=== PATIENT | female | born 1970 | race Caucasian/White ===

== ENCOUNTER 2019-05-26 11:14 | Day surgery (SDC) | payer OTHER ==
[~2019-05-26 11:14] MED LIST: ACETAMINOPHEN 1,000 MG/100 ML BTL IVPB ONE; CEFAZOLIN 2 Gram 2 GM/50 ML BAG IVPB ONE
[2019-05-26] MEDS ORDERED: SEVOFLURANE 250 ML INH ONE (11:15)
[2019-05-26] MEDS ORDERED: LIDOCAINE 2% MDV (20MG/ML) 20ML VIAL IV ONE (11:15)
[2019-05-26] MEDS ORDERED: ONDANSETRON HCL IV 4 MG/2 ML VIAL IVP ONE (11:15)
[2019-05-26] MEDS ORDERED: FENTANYL PF 100MCG/2ML VIAL IV ONE (11:15)
[2019-05-26] MEDS ORDERED: PROPOFOL 10 MG/ML VIAL IV ONE (11:15)
[2019-05-26] MEDS ORDERED: KETOROLAC 30 MG/ML VIAL IVP ONE (11:15)
[2019-05-26] MEDS ORDERED: MIDAZOLAM HCL 2MG/2ML VIAL IV ONE (11:15)
[2019-05-26] MEDS ORDERED: RINGERS SOLUTION,LACTATED 1,000 ML IV ONE (11:45)
[2019-05-26] MEDS ORDERED: METHYLPREDNISOLONE 40MG/VIAL IU ONE (13:26)
[2019-05-26] MEDS ORDERED: BUPIVACAINE 0.5% W/EPI MPF 30 ML VIAL SQ ONE (13:26)
[2019-05-26] MEDS ORDERED: MORPHINE SULFATE (PACU ONLY) 4 MG/ML VIAL IU ONE (13:26)
--- NOTE | 2019-05-27 09:40 | Operative Note ---
DATE OF SURGERY: 05/26/2019 PREOPERATIVE DIAGNOSIS: Internal derangement of the left knee. POSTOPERATIVE DIAGNOSES: 1. 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 2. Absent medial meniscus. 3. Large spur in the notch with impingement. OPERATION: 1. Left knee arthroscopy with intraarticular debridement and chondroplasty of patellofemoral compartment. 2. Left knee arthroscopy with resection of large spur in the notch. STAFF SURGEON: Sami Irwin MD ANESTHESIA: General. PREPARATION: Chloraprep. INDIVIDUAL CONSIDERATIONS: None. PROCEDURE: The patient was taken to the operating room and placed supine on the operating room table. The patient had a successful induction of a general anesthetic. The left lower extremity was prepped and draped in the usual fashion. Examination under anesthesia showed an effusion of the normal ligaments. The patient had a superolateral inflow cannula placed. Skin was infiltrated with 0.5% Marcaine with epinephrine prior. A clear effusion was drained. The knee was inflated with normal saline. An inferomedial and an inferolateral portal were made in a similar fashion. The arthroscope was introduced through the inferolateral portal up into the pouch. Patellofemoral compartment showed grade 3-4 change throughout. This was smoothed off with a shaver in areas where the unstable cartilage was, it was exposed mainly in the notch. Floating debris was irrigated out of both gutters but no large loose bodies medially. It looked like she had a previous medial meniscectomy but the articular cartilage still looked good, surprisingly. In the notch, the ACL, which was reconstructed, was intact but there was a huge spur on the tibial plateau right at the base of the ACL anteriorly impinging in the notch with extension. I went ahead and removed this with ethmoid Rongeur. Laterally, lateral compartment structures looked great including lateral meniscus, popliteal tendon, lateral articular cartilage. The knee was then irrigated out with saline to remove loose floating debris. Portals were closed with patience, and 20 mL of 0.5% Marcaine with epinephrine along with 4 mg of morphine and 40 mg of Depo-Medrol were injected into the knee. A sterile bulky compressive dressing was applied. The patient tolerated procedure well. Needle and sponge counts were correct. Estimated blood loss was minimal. He was taken back to recovery in good condition. There were no complications. SETH
== END 2019-05-26 14:23 | disposition home or self-care (01) ==
LOC: SUR 11:14
PROVIDERS: ATTEND Orthopaedic Surgery
DX: M22.42 Chondromalacia patellae, left knee (principal); M25.762 Osteophyte, left knee; M23.2 Derangement of meniscus due to old tear or injury
CPT/HCPCS: J1030; J1885; J2270; J2405; J7120

== ENCOUNTER 2019-08-17 09:05 | Day surgery (SDC) | payer OTHER ==
[~2019-08-17 09:05] MED LIST changes: -ACETAMINOPHEN 1,000 MG/100 ML BTL IVPB ONE; +CELECOXIB 100 MG CAPSULE PO ONE; +FAMOTIDINE 20MG TABLET PO ONE; +MECLIZINE 25 MG TABLET PO ONE; +METOCLOPRAMIDE 10 MG TABLET PO ONE; +VANCOMYCIN 1GM/200ML PREMIX 1 GM/200 ML PIGGYBACK IVPB ONE
[2019-08-17] MEDS ORDERED: MIDAZOLAM HCL 2MG/2ML VIAL IV ONE (09:06)
[2019-08-17] MEDS ORDERED: LIDOCAINE 2% MDV (20MG/ML) 20ML VIAL IV ONE (09:06)
[2019-08-17] MEDS ORDERED: PROPOFOL 10 MG/ML VIAL IV ONE (09:06)
[2019-08-17] MEDS ORDERED: FENTANYL PF 100MCG/2ML VIAL IV ONE (09:06)
[2019-08-17] MEDS ORDERED: *PACU ONLY* KETAMINE HCL 10 MG/ML (20ML) VIAL IV ONE (09:06)
[2019-08-17] MEDS ORDERED: RINGERS SOLUTION,LACTATED 1,000 ML IV ONE ×2 (10:00→13:13)
[2019-08-17 10:02] LABS: ABO GROUP O; ANTIBODY SCREEN NEGATIVE (NEGATIVE); RH TYPE NEGATIVE
[2019-08-17] MEDS ORDERED: TRANEXAMIC ACID 1,000 MG/10 ML ML IU ONE (11:54)
[2019-08-17] MEDS ORDERED: BUPIVACAINE 0.5% W/EPI MPF 30 ML VIAL IU ONE (11:54)
[2019-08-17] MEDS ORDERED: TRANEXAMIC ACID 1,000 MG/10 ML ML IV ONE (11:55)
[2019-08-17] MEDS ORDERED: NALOXONE 0.4 MG/1 ML VIAL IVP PRN (13:33)
[2019-08-17] MEDS ORDERED: KETOROLAC 30 MG/ML VIAL IVP PRN (13:33)
[2019-08-17] MEDS ORDERED: ZOLPIDEM TARTRATE 5 MG TABLET PO PRN (13:33)
[2019-08-17] MEDS ORDERED: ONDANSETRON HCL IV 4 MG/2 ML VIAL IVP PRN (13:33)
[2019-08-17] MEDS ORDERED: TRAMADOL HCL 50 MG TABLET PO PRN (13:33)
[2019-08-17] MEDS ORDERED: MAGNESIUM HYDROXIDE 30 ML UDC PO PRN (13:33)
[2019-08-17] MEDS ORDERED: DIPHENHYDRAMINE HCL 25 MG CAPSULE PO PRN (13:33)
[2019-08-17] MEDS ORDERED: AL HYDROX/MAG HYDROX 30ML UD PO PRN (13:33)
[2019-08-17] MEDS ORDERED: ACETAMINOPHEN W/ CODEINE 300MG/60MG TABLET PO PRN ×2 (13:33)
[2019-08-17] MEDS ORDERED: BISACODYL 10 MG SUPP RC PRN (13:33)
[2019-08-17] MEDS ORDERED: HYDROCODONE/APAP 10/325 TABLET PO PRN (13:33)
[2019-08-17] MEDS ORDERED: ACETAMINOPHEN 325 MG TAB PO PRN (13:33)
[2019-08-17] MEDS ORDERED: HYDROMORPHONE HCL 2 MG/ML VIAL IM PRN (13:33)
[2019-08-17] MEDS ORDERED: CYCLOBENZAPRINE 10MG TABLET PO PRN (15:01)
[2019-08-17] MEDS ORDERED: BUTALB/ACETAMINOPHEN/CAFFEINE TABLET PO PRN (15:02)
[2019-08-17] MEDS ORDERED: CLONAZEPAM 1MG TABLET PO PRN (15:02)
[2019-08-17] MEDS: POTASSIUM CHLORIDE/D5-0.9%NACL 20 MEQ/1,000 ML BAG IV SCH ×2 (15:32→20:03)
[2019-08-17] MEDS: HYDROCODONE/APAP 10/325 TABLET PO PRN ×2 (16:23→21:12)
--- NOTE | 2019-08-17 16:25 | Rehab Evaluation ---
Patient Information - Patient Information Diagnosis: L knee DJD Ordered Treatment: PT Evaluate and Treat Status: Initial Evaluation Surgery: Yes (L TKA) Date of Surgery: 08/17/19 Past Medical/Surgical Hx: PAST MEDICAL/SURGICAL HISTORY Past Surgical History LEFT KNEE SCOPE left knee ACL reconstruction; arthroscopy rt knee; endometrial ablation 2017; colonoscopy x 2; EGD. PMH - Respiratory Hx Respiratory Disorders No PMH - Cardiovascular Hx Cardiovascular Disorders No Exercise Tolerance Fair Hx of Migraines Yes: 1-2 x week PMH - Neuro Hx Neurological Disorders Yes PMH - GI Hx Gastrointestinal Disorders Yes Hx Irritable Bowel Yes Hx Nausea/Vomiting Yes: Nausea with migraines PMH - Hx Genitourinary Disorders No Comment: LMP 2017-had ablation PMH - Endocrine Hx Endocrine Disorders No PMH - Musculoskeletal Hx Musculoskeletal Disorders Yes Hx Arthritis Yes: hands,lt knee Comment: left knee unstable PMH - Psych Hx Psychiatric Problems Yes Hx Anxiety Yes Hx Depression Yes Hx Suicide Attempt No PMH - Hematology/Oncology Hx Hematology/Oncology Yes Disorders Hx Anemia Yes Premorbid Status: Detail (The patient was independent with all mobility prior to surgery.) Social History: Detail (The patien lives alone but will be staying with her parents after surgery. Her parents home is a one story house with 3 steps at the enterance and one handrail. The bathroom is equipped with a tub/shower combination and standard toilet. There are grab bars in the tub but not by the toilet. The patient has a front wheeled walker.) Precautions: [place], Fall, Other (WBAT on the L LE) - Time With Patient Total Time Spent With Patient (Min): 30 Treatment Procedures: Detail (Initial Evaluation low complexity) Subjective Information - Subjective Information Per Patient (The patient has complaints of L knee pain level 4 at the highest using 0-10 pain scale.) Objective Data - Mental Status Patient Orientation: Oriented x3 - Visual Perception Appears within normal limits for therapeutic activities - ROM Not within normal limits (The patient's L knee AROM is limited s/p surgery. All other LE AROM is WNL.) - Strength/Tone Other (The patient's LE strength was not tested s/p surgery however is functional.) - Bed Mobility Independent (The patient was independent with supine to and from sit transfer.) - Transfers Independent (The patient was independent with sit to and from stand transfer and toilet transfer.) - Balance Balance Sitting: Good Balance Standing: Good - Sensation Intact - Gait Detail (The patient ambulated 110 feet x 1 with front wheeled walker WBAT on the L LE with supervision for safety only.) Therapy Assessment - Therapy Assessment Detail (The patient was independent with bed mobility, transfers and ambulation on levels. The patient will be seen for one to two sessions to complete inpt. PT goals.) Problem List - Problem List Physical Therapy Problem List: Detail (Decreased L knee AROM and L LE strength) Goals - Goals Physical Therapy Goals: 1) The patient will ambulate on stairs with supervision for safety using proper technique. 2) The patient will be independent with TKA HEP. Plan - Plan Physical Therapy Plan: PT 1-2 sessions for gait training on stairs and instruction in HEP.
[2019-08-17] MEDS: CEFAZOLIN 2 Gram 2 GM/50 ML BAG IVPB SCH (20:03)
[2019-08-17] MEDS: TOPIRAMATE 25MG TABLET PO SCH (21:13)
[2019-08-17] MEDS: DOCUSATE SODIUM 100 MG CAPSULE PO SCH (21:13)
[2019-08-18] MEDS: CEFAZOLIN 2 Gram 2 GM/50 ML BAG IVPB SCH ×2 (04:29→10:39)
[2019-08-18] MEDS: HYDROCODONE/APAP 10/325 TABLET PO PRN ×2 (05:58→10:37)
[2019-08-18] MEDS: POTASSIUM CHLORIDE/D5-0.9%NACL 20 MEQ/1,000 ML BAG IV SCH ×2 (05:59→06:32)
[2019-08-18 06:40] LABS: HEMOGLOBIN 10.6 gm/dl (11.6-16.0)
[2019-08-18 07:00] LABS: BLOOD UREA NITROGEN 6 mg/dL (6-20); CREATININE 0.5 mg/dL (0.5-0.9); EST GLOMERULAR FILTRATION RATE > 60 mL/min; GLUCOSE,RANDOM 124 mg/dL (74-109)
--- NOTE | 2019-08-18 09:46 | Rehab Evaluation ---
Patient Information - Patient Information Diagnosis: L knee DJD Ordered Treatment: OT Evaluate and Treat Surgery: Yes (L TKA) Date of Surgery: 08/17/19 Past Medical/Surgical Hx: PAST MEDICAL/SURGICAL HISTORY Past Surgical History LEFT KNEE SCOPE left knee ACL reconstruction; arthroscopy rt knee; endometrial ablation 2017; colonoscopy x 2; EGD. PMH - Respiratory Hx Respiratory Disorders No PMH - Cardiovascular Hx Cardiovascular Disorders No Exercise Tolerance Fair Hx of Migraines Yes: 1-2 x week PMH - Neuro Hx Neurological Disorders Yes PMH - GI Hx Gastrointestinal Disorders Yes Hx Irritable Bowel Yes Hx Nausea/Vomiting Yes: Nausea with migraines PMH - Hx Genitourinary Disorders No Comment: LMP 2017-had ablation PMH - Endocrine Hx Endocrine Disorders No PMH - Musculoskeletal Hx Musculoskeletal Disorders Yes Hx Arthritis Yes: hands,lt knee Comment: left knee unstable PMH - Psych Hx Psychiatric Problems Yes Hx Anxiety Yes Hx Depression Yes Hx Suicide Attempt No PMH - Hematology/Oncology Hx Hematology/Oncology Yes Disorders Hx Anemia Yes Premorbid Status: Detail (The patient was independent with all mobility, meal prep, laundry and home mgmt tasks as well as yard work prior to surgery.) Social History: Detail (The patien lives alone but will be staying with her parents after surgery. Her parents home is a one story house with 3 steps at the entrance and one handrail. The bathroom is equipped with a tub/shower combination and standard toilet. There are grab bars in the tub but not by the toilet. The patient has a front wheeled walker.) Precautions: [place], Fall, Other (WBAT on the L LE) - Time With Patient Total Time Spent With Patient (Min): 40 Treatment Procedures: Detail (OT eval low complexity) Subjective Information - Subjective Information Per Patient Objective Data - Pain Pain Present: Yes (10/14) - Mental Status Patient Orientation: Oriented x3 - Visual Perception Appears within normal limits for therapeutic activities - ROM Within normal limits ([place] UE AROM WNL) - Strength/Tone Within normal limits ([place] UE strength WNL) - Coordination Appears within normal limits for therapeutic activities - Bed Mobility Independent (Ind with supine to sit and sit to supine) - Transfers Independent (Ind with sit to stand from EOB) - Balance Balance Sitting: Good Balance Standing: Good - Sensation Intact - ADL's/IADL's Detail (Pt educated and able to demonstrate learning of modified LE dressing techniques including doffing slipper socks and briefs and donning júnior sock (with assist), underwear, pants and tennis shoes. Reviewed kitchen and shower safety and modifications, pt verbalized understanding.) Therapy Assessment - Therapy Assessment Detail (Pt is Ind with modified LE dressing techniques.) Problem List - Problem List Physical Therapy Problem List: Detail (Decreased L knee AROM and L LE strength) Occupational Therapy Problem List: Detail (No current IP OT problems identi fied.) Goals - Goals Physical Therapy Goals: 1) The patient will ambulate on stairs with supervision for safety using proper technique. 2) The patient will be independent with TKA HEP. Occupational Therapy Goals: No current IP OT goals identified. Prognosis - Prognosis Good Plan - Plan Physical Therapy Plan: PT 1-2 sessions for gait training on stairs and instruction in HEP. Occupational Therapy Plan: Pt is discharged from IP OT. Thank you for this referral.
[2019-08-18] MEDS ORDERED: FERROUS SULFATE 325 MG TAB PO SCH (10:00)
[2019-08-18] MEDS ORDERED: RIVAROXABAN 10 MG TABLET PO SCH (10:00)
[2019-08-18] MEDS ORDERED: VENLAFAXINE ER 75 MG CAPSULE PO SCH (10:00)
--- NOTE | 2019-08-18 10:26 | Physical Therapy Tx Note ---
Physical Therapy Tx Note - Treatment Note Tolerated: Good Total Time Spent With Patient: 20 Physical Therapy Tx Note: Detail (The patient was sitting on the edge of the bed when PT arrived and was complaining of L knee pain but did not rate the pain using 0-10 pain scale. The patient ambulated with front wheeled walker a distance of 100 feet x 1 independently WBAT on the L LE. The patient ambulated on 3 steps with use of folded walker and one railing using proper technique with supervision for safety. The patient's HEP was reviewed including seated heel slides, ankle pumps, SLR with use of strap, quad sets, hamstring sets, gluteal sets. The patient has met all inpt. PT goals and is discharged from inpt. PT) Physical Therapy Problem List: Detail (Decreased L knee AROM and L LE strength) Physical Therapy Goals: 1) The patient will ambulate on stairs with supervision for safety using proper technique.(Goal Met). 2) The patient will be independent with TKA HEP.(Goal Met) Physical Therapy Plan: The patient is discharged from inpt. PT and is to continue with Home PT.
[2019-08-18] MEDS: DOCUSATE SODIUM 100 MG CAPSULE PO SCH (10:37)
[2019-08-18] MEDS: TOPIRAMATE 25MG TABLET PO SCH (10:38)
--- NOTE | 2019-08-20 10:52 | Operative Note ---
DATE OF SURGERY: 08/17/2019 PREOPERATIVE DIAGNOSIS: Posttraumatic arthrosis of the left knee. POSTOPERATIVE DIAGNOSIS: Posttraumatic arthrosis of the left knee. OPERATION: 1. Cemented left total knee arthroplasty using [employer] components with a size 4 Oxinium femur, a size 3 stemmed tibia baseplate, a 9 mm lipped highly crosslinked tibial insert, and a 32 mm all-plastic patella. 2. Removal of deep buried hardware left proximal tibia. STAFF SURGEON: Sami Irwin MD ANESTHESIA: Spinal. PREPARATION: Chloraprep. INDIVIDUAL CONSIDERATIONS: None. [place] OPERATOR: Mrs. Faiza Powell PROCEDURE: The patient was taken to the operating room, placed supine on the operating room table. Had a successful induction of a spinal anesthetic. The left lower extremity was prepped and draped in the usual fashion. The limb was elevated and tourniquet was inflated to 250 mmHg. The distal half of the incision was her previous ACL scar. Sharp dissection carried down through skin and subcutaneous tissue. Small veins were coagulated with a Bovie. A medial arthrotomy was performed. The patella was everted and the knee was flexed. The patient had exposed bone in both medial and lateral compartments. The graft was intact but atrophic. Fat pad was resected, ACL was sacrificed, and provisional meniscectomies were performed. The capsule was released from the medial proximal tibia. The tibial interference screw was identified and freed up with an osteotome to remove surrounding bone. I was then able to easily remove it. The initial femoral commuter pilot hole was then made freehand. The intramedullary femoral cutting jig was placed. It was cut in 7.0 degrees of valgus and adjusted for rotation and secured with pins for a 10 mm resection. The initial transverse cut was then made. The skin guide was placed in the anterior and posterior commuter pilot holes. These were cut in 3 degrees of external rotation and it was found that a size 4 would be appropriate. The anterior and posterior cuts followed by chamfer cuts were made. Osteophytes removed, and a size 4 trial was placed and found to fit well. The tibia was brought forward, and the remainder of the meniscal remnants removed with a Bovie. The extraarticular tibial cutting jig was placed. It was cut in neutral with a 3-degree AP slope. It was set for a 9 mm resection keyed off the high lateral side and secured with pins. When cutting the tibia, care was taken to preserve the PCL insertion on the tibia. After removing osteophytes, I could fit a size 3. It was adjusted for rotation and secured with pins. With a size 9 trial and femoral trial, there was excellent motion and stability. Ligamentous balance and rotation alignment were thought to be normal. Femoral commuter pilot holes were impacted and the tibial keel stamp was impacted, and these trial components were removed. The patient had a thick patella and roughly 9 mm of bone was removed freehand. I could easily fit a 32 patella, and the 3 commuter pilot holes were drilled. The knee was then thoroughly irrigated out with pulsatile Betadine and saline to remove any visual or palpable debris. The tourniquet was let down briefly to get bleeders posteriorly and then placed back up again. Again thorough irrigation. Bony surfaces were then dried with a CarboJet. A size 3 stemmed tibia baseplate was cemented into place followed by impaction of the 9 mm lipped highly crosslinked tibial insert followed by cementing in the size 4 Oxinium femur followed by cementing in the 32 mm all-plastic patella. The implant surfaces were compressed, excess cement was removed. After the cement had set, there was excellent motion and stability. Ligamentous balance, rotation alignment, and patellofemoral tracking were normal. No lateral release was required. Again thorough irrigation. Tourniquet was let down. Hemostasis was obtained with a Bovie. The skin, subcu, and periosteum were infiltrated with 30 mL of 0.5% Marcaine with epinephrine. The capsule was then closed with a running #2 quill, subcu was closed in layers with running 0 quill, skin was closed with patience. Then 1 g of tranexamic acid was mixed with 20 mL of saline and injected into the knee through a sterile 18-gauge needle, and a sterile bulky compressive BRINDA- type dressing was applied. The patient tolerated the procedure well. Needle and sponge counts were correct. Estimated blood loss was minimal, and she was taken back to recovery in good condition. There were no complications. SETH
== END 2019-08-18 13:30 | disposition home or self-care (01) ==
LOC: SUR 09:05 → MEDSURG 14:16 → SUR 08-18 13:30
PROVIDERS: ATTEND Orthopaedic Surgery
DX: M17.12 Unilateral primary osteoarthritis, left knee (principal)
CPT/HCPCS: 27447; 20680; 01402; 64447; 85018; 85014; 80048; 81025; 86900; 86901; 86850; 94010; C1776 ×2; J1885; J3010; J0690 ×2; J3490 ×4; J3370; 76942; J3480; J7120